=== PATIENT | male | born 1955 | race Caucasian/White ===

== ENCOUNTER 2024-05-28 01:09 | Day surgery (SDC) | payer MEDICARE, SELFPAY ==
[2024-05-22 09:28] VITALS: BMI 29.9
[2024-05-28 08:24] VITALS: BP 119/69; PULSE 72; RESP 16; TEMP 35.7; O2SAT 98
[2024-05-28] MEDS: LACTATED RINGERS 1,000 ML 150 ML IV CONT (08:37)
[2024-05-28 08:39] LABS: Glucose Point of Care 154 mg/dl (65-105)
--- NOTE | 2024-05-28 09:21 | P.HP_ITS ---
History of Present Illness History of Present Illness Consent: Risks, benefits, and alternatives have been discussed and questions answered. Patient agrees to proceed with procedure. Chief complaint: Neoplasm screening Narrative: Charles Butterfield is a 69 year old male here for screening colonoscopy, last one 10 years ago [facility] Past Medical History Medical History Eczema Mixed hyperlipidemia Overweight (BMI 25.0-29.9) Type 2 diabetes mellitus with hyperglycemia Surgical History Surgical History History of hernia repair History of tonsillectomy Family History Family History Father , age 79 Heart disease Diabetes mellitus Mother , age 76 Diabetes mellitus Lung cancer Sibling Diabetes mellitus Heart disease Hypertension Social History Social History Smoking status: Never smoker Alcohol intake: current Substance use: never Substance use type: does not use Lack of Transportation: No Lack of Food: Never True Current Housing: I Have Housing Concerned About Future Housing: No Difficulty Paying Gas/Electric Bills: No Difficulty Paying for Meds: No Currently Unemployed: No Education: High School Diploma/GED Difficulty w/ Childcare or Family Care: No Meds Home Medications and Allergies Home Medications ?Medication ?Instructions ?Recorded ?Confirmed ?Type apixaban 5 mg tablet (Eliquis) 5 mg PO BID 07/01/20 05/28/24 History atorvastatin 10 mg tablet 10 mg PO DAILY 07/01/20 05/28/24 History cholecalciferol (vitamin D3) 125 125 mcg PO DAILY 07/01/20 05/28/24 History mcg (5,000 unit) capsule diltiazem HCl 180 mg capsule,24 180 mg PO BID 07/01/20 05/28/24 History hr,extended release hydralazine 100 mg tablet 100 mg PO BID 07/01/20 05/28/24 History hydrochlorothiazide 25 mg tablet 25 mg PO DAILY 07/01/20 05/28/24 History lisinopril 40 mg tablet 40 mg PO DAILY 07/01/20 05/28/24 History metoprolol tartrate 100 mg tablet 100 mg PO Q12H 07/01/20 05/28/24 History fenofibrate 160 mg tablet 160 mg PO DAILY 09/04/20 05/28/24 History blood-glucose meter (Accu-Chek #1 ea 05/13/21 12/16/23 Rx Guide Glucose Meter) blood-glucose meter,continuous #1 ea 09/01/23 12/16/23 Rx (FreeStyle Fatou 3 [place]) blood-glucose sensor (FreeStyle #7 ea 09/01/23 12/16/23 Rx Fatou 3 Sensor device) glimepiride 2 mg tablet See Rx Instructions .Route 12/09/23 05/28/24 Rx .COMPLEX #100 tabs lancets (Accu-Chek Softclix #200 ea 02/21/24 Rx Lancets) blood sugar diagnostic (Accu-Chek See Rx Instructions .Route 02/22/24 05/28/24 Rx Guide test strips) .COMPLEX #200 strips insulin degludec 100 unit/mL (3 45 unit (0.45 mL) subcut DAILY #45 03/27/24 05/28/24 Rx mL) subcutaneous pen (Tresiba mL FlexTouch U-100 insulin) metformin 500 mg tablet See Rx Instructions .Route 04/27/24 05/28/24 Rx .COMPLEX #300 tabs empagliflozin 25 mg tablet See Rx Instructions .Route 05/14/24 05/28/24 Rx (Jardiance) .COMPLEX #100 tabs triamcinolone acetonide 0.1 % 1 applic topical QID PRN rash 05/22/24 05/22/24 History topical cream Allergies Allergy/AdvReac Type Severity Reaction Status Date / Time fish oil Allergy Mild Itching Verified 05/28/24 08:19 Penicillins Allergy Unknown Unknown Verified 05/28/24 08:19 Vital Signs Vital Signs - 24 hr 05/28/24 08:24 Temperature 96.2 F L Pulse Rate 72 Respiratory Rate 16 Blood Pressure 119/69 Pulse Oximetry 98 Oxygen Delivery Room Air Exam Const: General: comfortable and no acute distress HENMT: Face/Nose/Sinus: Normal nares present Eyes: General: appearance normal, both eyes and all related structures Neck: Neck: no JVD Resp: Auscultation: clear to auscultation bilaterally Cardio: Rate: regular rate Rhythm: regular rhythm GI: Inspection: non-distended GI Palp: Yes Soft to palpation Skin: General skin exam: normal color Neuro: General: gait normal Speech: normal speech Extrem: General: normal to inspection Psych: Mental Status: mental status grossly normal Assessment and Plan Assessment and plan (1) Colon cancer screening: Code(s): Z12.11 - Encounter for screening for malignant neoplasm of colon Status: Acute Assessment and Plan: colonoscopy
--- NOTE | 2024-05-28 09:22 | WPDANESEPPF ---
Anes - Initial Pre Proc Eval Procedure: Operation Date: 05/28/24 09:30 Proposed Procedures p Screening Colonoscopy - Polo Webb MD Date/Time: 05/28/24 09:22 Surgeon: Polo Webb MD Pre Op Diagnosis: Neoplasm screening Patient Data Age: 69 Gender: M Height: 1.83 m Weight: 98.6 kg Last Vital Signs Temp 96.2 F L 05/28/24 08:24 Pulse 72 05/28/24 08:24 Resp 16 05/28/24 08:24 BP 119/69 05/28/24 08:24 Pulse Ox 98 05/28/24 08:24 O2 Del Method Room Air 05/28/24 08:24 Allergies Allergy/AdvReac Type Severity Reaction Status Date / Time fish oil Allergy Mild Itching Verified 05/28/24 08:19 Penicillins Allergy Unknown Unknown Verified 05/28/24 08:19 Home Medications ?Medication ?Instructions ?Recorded ?Confirmed ?Type apixaban 5 mg tablet (Eliquis) 5 mg PO BID 07/01/20 05/28/24 History atorvastatin 10 mg tablet 10 mg PO DAILY 07/01/20 05/28/24 History cholecalciferol (vitamin D3) 125 125 mcg PO DAILY 07/01/20 05/28/24 History mcg (5,000 unit) capsule diltiazem HCl 180 mg capsule,24 180 mg PO BID 07/01/20 05/28/24 History hr,extended release hydralazine 100 mg tablet 100 mg PO BID 07/01/20 05/28/24 History hydrochlorothiazide 25 mg tablet 25 mg PO DAILY 07/01/20 05/28/24 History lisinopril 40 mg tablet 40 mg PO DAILY 07/01/20 05/28/24 History metoprolol tartrate 100 mg tablet 100 mg PO Q12H 07/01/20 05/28/24 History fenofibrate 160 mg tablet 160 mg PO DAILY 09/04/20 05/28/24 History blood-glucose meter (Accu-Chek #1 ea 05/13/21 12/16/23 Rx Guide Glucose Meter) blood-glucose meter,continuous #1 ea 09/01/23 12/16/23 Rx (FreeStyle Fatou 3 [place]flow) blood-glucose sensor (FreeStyle #7 ea 09/01/23 12/16/23 Rx Fatou 3 Sensor device) glimepiride 2 mg tablet See Rx Instructions .Route 12/09/23 05/28/24 Rx .COMPLEX #100 tabs lancets (Accu-Chek Softclix #200 ea 02/21/24 Rx Lancets) blood sugar diagnostic (Accu-Chek See Rx Instructions .Route 02/22/24 05/28/24 Rx Guide test strips) .COMPLEX #200 strips insulin degludec 100 unit/mL (3 45 unit (0.45 mL) subcut DAILY #45 03/27/24 05/28/24 Rx mL) subcutaneous pen (Tresiba mL FlexTouch U-100 insulin) metformin 500 mg tablet See Rx Instructions .Route 04/27/24 05/28/24 Rx .COMPLEX #300 tabs empagliflozin 25 mg tablet See Rx Instructions .Route 05/14/24 05/28/24 Rx (Jardiance) .COMPLEX #100 tabs triamcinolone acetonide 0.1 % 1 applic topical QID PRN rash 05/22/24 05/22/24 History topical cream Laboratory Tests 05/28/24 08:34 POC Capillary Glucose 154 H mg/dl (65-105) Patient hx anesthesia problems: none Family hx anesthesia problems: none Results Review: All pre-operative results and documents have been reviewed as part of the pre-operative evaluation. [facility] Past Medical History Medical History Eczema Mixed hyperlipidemia Type 2 diabetes mellitus with hyperglycemia Overweight (BMI 25.0-29.9) Surgical History Surgical History History of hernia repair History of tonsillectomy Family History Family History Father , age 79 Heart disease Diabetes mellitus Mother , age 76 Diabetes mellitus Lung cancer Sibling Diabetes mellitus Heart disease Hypertension Social History Social History Smoking status: Never smoker Alcohol intake: current Substance use: never Substance use type: does not use Lack of Transportation: No Lack of Food: Never True Current Housing: I Have Housing Concerned About Future Housing: No Difficulty Paying Gas/Electric Bills: No Difficulty Paying for Meds: No Currently Unemployed: No Education: High School Diploma/GED Difficulty w/ Childcare or Family Care: No Anes - Eval Final PreProcedure Day of Procedure 05/28/24 09:22 Patient weight: overweight Heart: regular rate and rhythm and irregular rhythm Lungs: clear to auscultation Airway: Mallampati scale class II Neurological: alert and oriented Last oral intake: >/= 8 hours ASA classification: III Emergent: no Anesthetic plan: proceed Anesthesia type and monitoring: general GIVS and standard monitoring Results Review: All pre-operative results and documents have been reviewed as part of the pre-operative evaluation. Afib, HTN, DM fsbs 154, mild to mod by ECHO 2020. Informed Consent: The patient's anesthetic plan and its attendant risks and benefits were discussed with the patient/family/POA. Questions were solicited and answers provided to the satisfaction of the patient/family/POA.
[2024-05-28 09:52] VITALS: BP 101/52; PULSE 77; RESP 20; O2SAT 95
[2024-05-28 10:02] VITALS: BP 100/55; PULSE 69; RESP 20; O2SAT 97
[2024-05-28 10:05] LABS: Glucose Point of Care 176 mg/dl (65-105)
[2024-05-28 10:12] VITALS: BP 101/61; PULSE 75; RESP 20; O2SAT 97
== END 2024-05-28 10:24 | disposition home or self-care (01) ==
PROVIDERS: PCP Family Medicine; Visit Provider Internal Medicine Gastroenterology
PROC: 0DJD8ZZ Inspection of Lower Intestinal Tract, Via Natural or Artificial Opening Endoscopic (ICD-10-PCS; CPT 45378; principal; 2024-05-28 09:30)
DX: Z12.11 Encounter for screening for malignant neoplasm of colon (principal); D12.3 Benign neoplasm of transverse colon; E11.9 Type 2 diabetes mellitus without complications; E78.2 Mixed hyperlipidemia; Z79.4 Long term (current) use of insulin; Z79.84 Long term (current) use of oral hypoglycemic drugs
CPT/HCPCS: 45385; 82948; 88305; J2003; J2371; J2704; J7120